=== PATIENT | female | born 2000 | race Caucasian/White ===

== ENCOUNTER 2020-03-01 15:07 | Emergency (ER) | payer BC ==
[2020-03-01 15:32] VITALS: BP 105/70; PULSE 90; RESP 16; TEMP 98
--- NOTE | 2020-03-01 15:54 | ED ---
Lower Extremity Injury HPI - General Chief Complaint: Extremity Injury, Lower Stated Complaint: knee/leg pain Time Seen by Provider: 03/01/20 15:34 Source: patient Mode of arrival: ambulatory Limitations: no limitations - History of Present Illness Initial Comments: Patient is a 19-year-old female presenting to the emergency department with a chief complaint of right thigh pain. 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 Patient states typically she does not perform March exercise, however since she started participating in a camp she has to be very active by lifting small kids on and off horses. Patient reports she has been walking more unusual as well. The patient reports the pain is located along the anterior lateral aspect of the right proximal thigh and radiates distally to the supra patellar region. Patient denies taking medication to alleviate the symptoms. Patient denies any numbness or tingling. Denies any direct trauma to the region. Denies previous surgeries. Denies any calf tenderness chest pain or shortness of breath. - Related Data Allergies Allergy/AdvReac Type Severity Reaction Status Date / Time No Known Allergies Allergy Verified 03/01/20 15:32 Review of Systems ROS Statement: Those systems with pertinent positive or pertinent negative responses have been documented in the HPI. ROS Other: All systems not noted in ROS Statement are negative. Past Medical History Past Medical History: No Reported History History of Any Multi-Drug Resistant Organisms: None Reported Past Surgical History: Appendectomy Past Psychological History: No Psychological Hx Reported Smoking Status: Never smoker Past Alcohol Use History: Occasional Past Drug Use History: None Reported General Exam Limitations: no limitations General appearance: alert, in no apparent distress Head exam: Present: atraumatic, normocephalic, normal inspection Eye exam: Present: normal appearance, PERRL, EOMI Pupils: Present: normal accommodation ENT exam: Present: normal exam, normal oropharynx, mucous membranes moist, TM's normal bilaterally, normal external ear exam Neck exam: Present: normal inspection, full ROM. Absent: tenderness Respiratory exam: Present: normal lung sounds bilaterally. Absent: respiratory distress, wheezes, rales Cardiovascular Exam: Present: regular rate, normal rhythm, normal heart sounds Extremities exam: Present: normal inspection, tenderness (Tenderness along the anterior lateral aspect of her right hip that radiates distally to the suprapatellar region.), normal capillary refill, other (+2 dorsalis pedis and posterior tibialis bilaterally. Sensation intact in the right lower extremity.). Absent: full ROM (Limited range of motion with hip flexion in the right leg. Negative Thor. Negative anterior drawer.), pedal edema, joint swelling, calf tenderness (Negative Homans bilaterally.) Back exam: Present: normal inspection, full ROM. Absent: tenderness, CVA tenderness (R), CVA tenderness (L) Neurological exam: Present: alert, oriented X3, normal gait Psychiatric exam: Present: normal affect, normal mood. Absent: depressed Skin exam: Present: warm, dry, intact, normal color Course Vital Signs 03/01/20 15:29 Temperature 98 F Pulse Rate 90 Respiratory 16 Rate Blood Pressure 105/70 O2 Sat by Pulse 100 Oximetry Medical Decision Making - Medical Decision Making Patient is a 19-year-old female presenting to the emergency department with a chief complaint of right thigh pain. On exam patient has negative Thor negative anterior drawer. Pain seems to be originating in the proximal anterior lateral aspect of the right upper thigh and radiates distally to the suprapatellar region. I do suspect hip bursitis in the right lower extremity. Advised the patient to take anti-inflammatories for symptomatically control. Also advised the patient to perform daily stretches to help alleviate some of the symptoms. Advised the patient to decrease her activity level in order to promote recovery. Negative Homans bilaterally. Advised the patient to follow- up with compound specialist if symptoms not improved. Return parameters were thoroughly discussed with patient was understanding and agreeable. Case discussed with physician. Disposition Clinical Impression: Trochanteric bursitis of right hip Disposition: HOME SELF-CARE Condition: Stable Instructions (If sedation given, give patient instructions): Hip Bursitis (ED) Additional Instructions: Take ibuprofen for pain. Performed stretches to help alleviate some of the discomfort. Attempt not to remain standing for prolonged periods of time. Return to emergency department if symptoms worsen. If symptoms not resolve, please contact an compound specialist. Is patient prescribed a controlled substance at d/c from ED?: No Referrals: Nonstaff,Physician [REFERRING] - 1-2 days Rj Montgomery MD [STAFF PHYSICIAN] - 1-2 days Time of Disposition: 15:54
== END 2020-03-01 16:02 | disposition home or self-care (01) ==
LOC: EC 15:07
DX: M70.61 Trochanteric bursitis, right hip (principal); Y93.89 Activity, other specified
CPT/HCPCS: 99283